=== PATIENT | male | born 1930 | race Caucasian/White ===

== ENCOUNTER 2017-11-03 07:36 | Emergency (ER) | payer OTHER, BC ==
[~2017-11-03] VITALS: Ht 190.5 cm; Wt 99.3 kg
[2017-11-03 08:36] LABS: BASOPHIL (%) 0.2 % (0-1); EOSINOPHIL (%) 0.2 % (0-5); HEMATOCRIT 39.4 % (38.0-50.0); HEMOGLOBIN 13.2 G/DL (12.5-16.6); IMMATURE GRANULOCYTE (%) 0.2 % (0.0-0.7); LYMPHOCYTE (%) 4.9 % (15-42); LYMPHOCYTE COUNT 0.6 K/uL (1.0-2.8); MCH 29.3 PG (29.0-34.0); MCHC 33.5 G/DL (30.0-36.0); MCV 87.6 FL (86-99); MONOCYTE (%) 4.5 % (3-12); MONOCYTE COUNT 0.6 K/uL (0-0.8); NEUTROPHIL COUNT 11.3 K/uL (1.8-6.4); PLATELET COUNT 214 K/uL (156-360); RBC DIS.WIDTH-CV 13.8 % (11.8-14.6); RBC DIS.WIDTH-SD 43.8 % (39-53); WHITE BLOOD COUNT 12.6 K/uL (4.1-10.2)
[2017-11-03 08:41] LABS: INTER. NORMALIZED RATIO 1.2
[2017-11-03 08:46] LABS: CHLORIDE 101 mEq/L (99-109); POTASSIUM 3.8 mEq/L (3.7-5.4); SODIUM 137 mEq/L (136-147)
[2017-11-03 08:48] LABS: GLUCOSE 112 mg/dL (70-99)
[2017-11-03 08:52] LABS: CREATININE 1.2 mg/dL (0.6-1.3); GFR ESTIMATE (CALCULATED) > 59 mL/min/ (58.99-99999)
[2017-11-03 08:53] LABS: UREA NITROGEN (BUN) 22 mg/dL (9-23)
[2017-11-03 09:07] LABS: APPEARANCE TURBID ((CLEAR)); BILIRUBIN NEGATIVE; BLOOD LARGE; GLUCOSE (STRIP) NEGATIVE; KETONES NEGATIVE; LEUKOCYTES SMALL; NITRITE POSITIVE; PROTEIN (STRIP) 100; SPECIFIC GRAVITY 1.017 (1.000-1.030); UROBILINOGEN 0.2 MG/DL (0.2-1.0)
[2017-11-03 09:08] LABS: COLOR RED ((YELLOW))
[2017-11-03 09:19] LABS: RED BLOOD CELLS TNTC /HPF (0-5)
[2017-11-03] MEDS ORDERED: LEVAQUIN500 MG PO (10:29)
[2017-11-03 11:45] VITALS: BP 138/71
== END 2017-11-03 12:05 ==
LOC: EME 07:36
PROVIDERS: Emergency Medicine
DX: M54.9 Dorsalgia, unspecified (principal); W01.0XXA Fall on same level from slipping, tripping and stumbling without subsequent striking against object, initial encounter; N39.0 Urinary tract infection, site not specified; N20.0 Calculus of kidney; N28.1 Cyst of kidney, acquired; K80.20 Calculus of gallbladder without cholecystitis without obstruction; N40.0 Benign prostatic hyperplasia without lower urinary tract symptoms; R91.1 Solitary pulmonary nodule; M51.37 Other intervertebral disc degeneration, lumbosacral region; M51.34 Other intervertebral disc degeneration, thoracic region; Z96.642 Presence of left artificial hip joint; Z79.82 Long term (current) use of aspirin; Z87.891 Personal history of nicotine dependence
CPT/HCPCS: 70450; 72070; 72100; 74177; 80048; 81003; 85025; 85610; 99281; 99285